=== PATIENT | female | born 1970 | race African-American/Black ===

== ENCOUNTER 2017-07-27 14:02 | Emergency (ER) | payer MEDICAID ==
[~2017-07-27] VITALS: Ht 157.5 cm; Wt 73.0 kg
[~2017-07-27 14:02] MED LIST: CLON0.3T PO; CYCL5TAB PO; GABA-529 PO; HYDR-4009 PO; QUET400T PO
[2017-07-27] MEDS ORDERED: KETOROLAC 30MG/ML VIAL IV ONE (19:00)
[2017-07-27 19:31] LABS: BASOPHILS % 0.4 % (0.0-2.0); EOSINOPHILS % 1.8 % (0.0-5.0); HEMOGLOBIN. 8.8 g/dL (12.0-16.0); LYMPHOCYTES % 36.6 % (20.0-50.0); MEAN CORPUSCULAR HEMOGLOBIN 21.8 pg (28.0-32.0); MEAN CORPUSCULAR VOLUME 69.3 fL (81.0-99.0); MEAN PLATELET VOLUME 8.3 fl (7.4-10.4); MONOCYTES % 9.7 % (2.0-8.0); NEUTROPHILS % 51.5 % (40.0-76.0); PLATELET 341 x1000/uL (130-400); RED BLOOD CELL COUNT 4.04 mill/uL (4.2-5.4); RED CELL DISTRIBUTION WIDTH 23.6 % (11.6-14.6)
[2017-07-27 20:08] LABS: HCG SCREEN NEGATIVE
[2017-07-27 20:40] VITALS: BP 154/96
[2017-07-27] MEDS ORDERED: SODIUM CHLORIDE 0.9% 1,000 ML IV ONE (20:45)
== END 2017-07-27 20:55 | disposition left against medical advice (07) ==
LOC: ER 14:15
DX: D64.9 Anemia, unspecified (principal); I10 Essential (primary) hypertension; F31.9 Bipolar disorder, unspecified; Z86.73 Personal history of transient ischemic attack (TIA), and cerebral infarction without residual deficits
CPT/HCPCS: 36415; 84703; 85025; 96374; 99284; J1885; J7030; Z7610

== ENCOUNTER 2018-02-23 23:18 | Emergency (ER) | payer MEDICAID ==
[~2018-02-23] VITALS: Ht 167.6 cm; Wt 75.0 kg
[2018-02-24] MEDS ORDERED: KETOROLAC 60MG/2ML VIAL IM ONE (00:15)
[2018-02-24] MEDS ORDERED: CYCLOBENZAPRINE 10MG TABLET PO ONE (00:15)
[2018-02-24] MEDS ORDERED: HALOPERIDOL LACTATE 5MG/ML VIAL IM ONE (01:00)
[2018-02-24 01:40] VITALS: BP 133/76
== END 2018-02-24 01:55 | disposition left against medical advice (07) ==
LOC: ER 23:18
DX: M54.41 Lumbago with sciatica, right side (principal); I25.2 Old myocardial infarction; F31.9 Bipolar disorder, unspecified; Z79.899 Other long term (current) drug therapy
CPT/HCPCS: 81025; 96372; 99284; J1630; J1885

== ENCOUNTER 2021-01-12 13:44 | Emergency (ER) | payer MEDICAID ==
[~2021-01-12] VITALS: Ht 172.7 cm; Wt 73.0 kg
[2021-01-12 14:05] VITALS: BP 106/76
== END 2021-01-12 19:56 | disposition left against medical advice (07) ==
LOC: ER 13:44
DX: Z53.21 Procedure and treatment not carried out due to patient leaving prior to being seen by health care provider (principal)